=== PATIENT | female | born 1970 | race Caucasian/White ===

== ENCOUNTER → 2020-02-10 | Outpatient (CLI) | payer OTHER ==
[~2020-02-10] VITALS: Ht 157.5 cm; Wt 122.5 kg
[~2020-02-10] MED LIST: ASPIRIN EC325 M1 PO; COQ-10100 MG PO; CRESTOR20 MG PO; CYMBALTA60 MG PO; FISH OIL 1,0001 EAC9 PO; MAGNESIUM250 M1 PO; MELATONIN10 M3 PO; MULTIVITAMINS1 EAC7 PO; PREGABALIN150 MG PO; TIZANIDINE HCL2 M1 PO; TRAMADOL HCL E100 M1 PO; TURMERIC500 M2 PO; VITAMIN D350 MC3 PO
== END ==
LOC: M.LAB 09:26
PROVIDERS: ATTEND Orthopaedic Surgery
DX: Z01.812 Encounter for preprocedural laboratory examination (principal); Z20.828 Contact with and (suspected) exposure to other viral communicable diseases

== ENCOUNTER → 2020-02-13 | Day surgery (SDC) | payer OTHER ==
[~2020-02-13] MED LIST changes: +LORCET 5-325 M1 EACH PO
--- NOTE | 2020-02-13 17:13 | EKG ---
[place] [address] ELECTROCARDIOGRAM REPORT Name: ADELA HOFFMAN Room: [facility]#: [id number] Admission: 02/13/20 Attend Phys: Scott Hoyos, Discharge: Date of : 70 Date of Service: 02/13/20 1147 Report #: [id number] THIS REPORT FOR: //name// [facility] Test Date: 2020-02-13 Test Time: 11:47:54 Pat Name: ADELA HOFFMAN Department: Room: Gender: Retail Shift Manager: : 1970 Requested By: Sal Ro Order Number: [id number] Reading MD: Mark Ramirez Measurements Intervals Mar Lin Rate: 86 P: 30 AK: 156 QRS: 20 QRSD: 91 T: 27 QT: 372 QTc: 445 Interpretive Statements Sinus rhythm Low voltage, precordial leads Anteroseptal infarct, old No previous ECG available for comparison Electronically Signed On 02-13-2020 17:12:58 CDT by Mark Ramirez [email or web address] <ELECTRONICALLY SIGNED> By: Ramiro Ramirez MD, [facility] 02/13/20 1712 1147 1147 Ramiro Ramirez MD, JACQUELYN /EPI
--- NOTE | 2020-02-18 09:11 | OP ---
[facility] [address] [place] [address] OPERATIVE REPORT Name: ADELA HOFFMAN Room: [facility]#: [id number] Admission: 02/13/20 Attend Phys: Scott Hoyos II Discharge: Date of : 70 Report #: [id number] THIS REPORT FOR: //name// cc: Nico Gupta MD, Bruce D. MD ~ CC: Nico Hoyos DATE OF SERVICE: 02/13/2020 PREOPERATIVE DIAGNOSIS: Left knee medial meniscus tear. POSTOPERATIVE DIAGNOSES: 1. Left knee medial meniscus tear. 2. Grade 3 chondromalacia, lateral femoral condyle and patellofemoral groove. 3. Lateral tracking patella. PROCEDURES PERFORMED: 1. Left knee arthroscopic surgery with partial medial meniscectomy. 2. Abrasion chondroplasty, lateral femoral condyle and patellofemoral groove down to bleeding bone. 3. Lateral release. SURGEON: Scott Hoyos II, DO WRAPPER LEAF INSPECTOR: ARELY Delong ANESTHESIA: Per operative record. ESTIMATED BLOOD LOSS: Minimal. ANTIBIOTICS: Per operative record. DRAINS: None. COMPLICATIONS: None. CONDITION OF THE PATIENT: Stable to recovery room. DESCRIPTION OF PROCEDURE: The patient was taken to the operative suite and placed supine on the operative table, given appropriate anesthesia. The patient's affected lower extremity was sterilely prepped and draped with a well-padded knee arthroscopic mi. Surgery began by medial and lateral portal incisions. The arthroscope was advanced in the joint. There was found to be grade 3 chondromalacia of the lateral femoral condyle. Utilizing a shaver, an abrasion chondroplasty was performed down to bleeding bone and then [address] [address] OPERATIVE REPORT Name: ADELA HOFFMAN Elicia Room: [facility]#: [id number] Admission: 02/13/20 Attend Phys: Scott Hoyos II Discharge: Date of : 70 Report #: [id number] smoothed utilizing Coblation wand. There was also found to be grade 3 chondromalacia of patellofemoral groove. Utilizing a shaver, an abrasion chondroplasty was performed to the bleeding bone and then smoothed using Coblation wand. The medial meniscus was probed and shown to have a tear to the medial margin extending around to the posterior horn. Utilizing a basket and shaver, partial medial meniscectomy was performed to resect the torn flap along the medial meniscus and then smoothed utilizing Coblation wand. Lateral meniscus was probed and shown to be intact. The patella was shown to have lateral tracking with a fixed lateral tilt and translation. Utilizing cautery wand, a lateral release was performed along the lateral patellar retinaculum. This is shown to have an improved alignment and decreased patellar tilt and translation. ACL and PCL were intact. Final irrigation was then performed. The knee was drained of arthroscopic fluid, closed with 4-0 nylon in simple fashion. Dermabond and sterile dressing applied. The patient transported to the recovery room in stable condition. Counts were correct throughout the procedure. <ELECTRONICALLY SIGNED> By: Scott Hoyos II, DO 02/18/20 0911 [id number] [id number] Hoyos II, DO /nt
== END | disposition home or self-care (01) ==
LOC: M.SUR 05:44
PROVIDERS: ATTEND Orthopaedic Surgery
DX: S83.282A Other tear of lateral meniscus, current injury, left knee, initial encounter (principal); M94.262 Chondromalacia, left knee; M22.8X2 Other disorders of patella, left knee; Z98.890 Other specified postprocedural states; Z79.899 Other long term (current) drug therapy; Z79.82 Long term (current) use of aspirin; X58.XXXA Exposure to other specified factors, initial encounter; Y93.89 Activity, other specified; Y92.89 Other specified places as the place of occurrence of the external cause; Y99.8 Other external cause status